=== PATIENT | female | born 1990 | race Caucasian/White ===

== ENCOUNTER 2019-08-20 11:15 | Inpatient (IN) | payer MEDICAID ==
[~2019-08-20] VITALS: Ht 165.1 cm; Wt 63.5 kg
[2019-08-20 11:29] VITALS: Ht 165.1 cm; Wt 63.5 kg
[2019-08-20 12:31] LABS: microscopic required? YES; urine erythrocyte 2+ (NEGATIVE)
[2019-08-20 12:48] LABS: T3 TOTAL 1.18 ng/mL
[2019-08-20 12:50] LABS: FREE T4 0.94 ng/dL (0.76-1.46); FREE THYROXINE INDEX 2.7 ug/dL (1.4-4.5); T4(THYROXINE) 10.1 ug/dL (4.7-13.3)
[2019-08-20 12:58] LABS: RED CELL DISTRIBUTION WIDTH 13.4 % (11.5-14.5)
[2019-08-20 13:00] LABS: BASOPHIL % 0.3 % (0-2); PLATELET COUNT 205 x10^3mcL (130-400)
[2019-08-20 13:28] LABS: ERYTHROCYTE SED RATE 31 mm/hr (0-20)
[2019-08-20 13:39] LABS: ALBUMIN 3.6 g/dL (3.4-5.0); ALKALINE PHOSPHATASE 93 U/L (46-116); ALT/SGPT 18 U/L (14-59); AST/SGOT 12 U/L (15-37); BILIRUBIN TOTAL 0.5 mg/dL (0.20-1.00); CARBON DIOXIDE 24.4 mmol/L (21-32); CHLORIDE SERUM 99 mmol/L (98-107); CREATININE SERUM 0.8 mg/dL (0.6-1.0); GFR1 > 60 mL/min; GLUCOSE SERUM 124 mg/dL (74-106); POTASSIUM SERUM 3.3 mmol/L (3.5-5.1); SODIUM SERUM 136 mmol/L (136-145)
[2019-08-20 13:40] LABS: TOTAL PROTEIN, SERUM 8.3 g/dL (6.4-8.2)
[2019-08-20 13:42] LABS: CK-MB < 0.5 ng/mL (0-3.6); CREATINE KINASE 73 U/L (26-192)
[2019-08-20 14:03] LABS: C REACTIVE PROTEIN 23.9 mg/dL (<=0.9)
[2019-08-20 15:21] VITALS: BP 109/73
[2019-08-20 20:39] VITALS: BP 128/83
[2019-08-21 06:00] VITALS: BP 120/66
[2019-08-21 07:14] LABS: BASOPHIL % 0.2 % (0-2); PLATELET COUNT 190 x10^3mcL (130-400); RED CELL DISTRIBUTION WIDTH 13.7 % (11.5-14.5)
[2019-08-21 07:35] LABS: CALCIUM 8.5 mg/dL (8.5-10.1); CARBON DIOXIDE 22.5 mmol/L (21-32); CHLORIDE SERUM 106 mmol/L (98-107); CREATININE SERUM 0.6 mg/dL (0.6-1.0); GFR1 > 60 mL/min; GLUCOSE SERUM 93 mg/dL (74-106); POTASSIUM SERUM 3.6 mmol/L (3.5-5.1); SODIUM SERUM 138 mmol/L (136-145)
[2019-08-21 09:19] VITALS: BP 118/85
[2019-08-21 10:03] LABS: MAGNESIUM 1.7 mg/dL (1.8-2.4); PHOSPHOROUS 1.9 mg/dL (2.5-4.9)
[2019-08-21 17:51] VITALS: BP 129/83
[2019-08-21 20:42] VITALS: BP 125/85
[2019-08-22 06:03] VITALS: BP 122/70
[2019-08-22 06:43] LABS: BASOPHIL % 0.3 % (0-2); PLATELET COUNT 175 x10^3mcL (130-400); RED CELL DISTRIBUTION WIDTH 13.5 % (11.5-14.5)
[2019-08-22 07:11] LABS: CALCIUM 8.4 mg/dL (8.5-10.1); CARBON DIOXIDE 22.6 mmol/L (21-32); CHLORIDE SERUM 106 mmol/L (98-107); CREATININE SERUM 0.6 mg/dL (0.6-1.0); GFR1 > 60 mL/min; GLUCOSE SERUM 74 mg/dL (74-106); MAGNESIUM 1.8 mg/dL (1.8-2.4); PHOSPHOROUS 2.7 mg/dL (2.5-4.9); POTASSIUM SERUM 3.6 mmol/L (3.5-5.1); SODIUM SERUM 139 mmol/L (136-145)
[2019-08-22 08:09] VITALS: BP 133/72
[2019-08-22] MEDS ORDERED: LEVAQUIN750 MG PO (09:15)
[2019-08-22 10:03] VITALS: BP 133/72
== END 2019-08-22 11:08 | disposition home or self-care (01) | DRG 720 ==
LOC: ED 11:15 → MU 14:02
PROVIDERS: Specialist; ADMIT Internal Medicine
DX: A41.9 Sepsis, unspecified organism (principal); R16.0 Hepatomegaly, not elsewhere classified; N10 Acute pyelonephritis; E87.6 Hypokalemia; Z83.3 Family history of diabetes mellitus; Z82.49 Family history of ischemic heart disease and other diseases of the circulatory system
CPT/HCPCS: 36600; 84439; G0378; J0696; J1885; J1956; J2270; J2405; J3010; J7030; Q0092

== ENCOUNTER 2020-02-02 08:09 | Emergency (ER) | payer OTHER ==
[~2020-02-02] VITALS: Ht 165.1 cm; Wt 64.0 kg
[~2020-02-02 08:09] MED LIST: LEVAQUIN750 MG PO
[2020-02-02 08:26] VITALS: Ht 165.1 cm; Wt 64.0 kg
[2020-02-02 09:21] LABS: BASOPHIL % 0.4 % (0-2); PLATELET COUNT 199 x10^3mcL (130-400); RED CELL DISTRIBUTION WIDTH 12.9 % (11.5-14.5)
[2020-02-02 09:33] LABS: CALCIUM 8.9 mg/dL (8.5-10.1); CARBON DIOXIDE 27.8 mmol/L (21-32); CHLORIDE SERUM 106 mmol/L (98-107); CREATININE SERUM 0.7 mg/dL (0.6-1.0); GFR1 > 60 mL/min; GLUCOSE SERUM 90 mg/dL (74-106); POTASSIUM SERUM 4.4 mmol/L (3.5-5.1); SODIUM SERUM 139 mmol/L (136-145)
[2020-02-02 09:38] LABS: ALBUMIN 3.8 g/dL (3.4-5.0); ALKALINE PHOSPHATASE 71 U/L (46-116); ALT/SGPT 19 U/L (14-59); AST/SGOT 12 U/L (15-37); BILIRUBIN TOTAL 0.3 mg/dL (0.20-1.00)
[2020-02-02 10:28] VITALS: BP 115/87
== END 2020-02-02 10:28 | disposition home or self-care (01) ==
LOC: ED 08:09
PROVIDERS: Emergency Medicine
DX: K29.70 Gastritis, unspecified, without bleeding (principal)